=== PATIENT | female | born 1945 | race Caucasian/White ===

== ENCOUNTER 2018-06-04 14:58 | Observation (INO) | payer OTHER, BC ==
[2018-06-04] MEDS ORDERED: CA GLUCO IV ONE (16:30)
[2018-06-04] MEDS ORDERED: NA CHLORIDE 0.9% IV ONE (16:30)
[2018-06-04] MEDS ORDERED: HYDROCODONE/APAP 10/325 TAB PO PRN (21:28)
[2018-06-05] MEDS ORDERED: PANTOPRAZOLE 40MG TABLET PO SCH (06:30)
[2018-06-05] MEDS ORDERED: DULOXETINE 30 MG CAP PO SCH (09:00)
[2018-06-05] MEDS ORDERED: CARVEDILOL 6.25 MG TAB PO SCH (09:00)
[2018-06-05] MEDS ORDERED: HOME MED 1 EA UNK (Potassium Chloride [Klor-Con M10] 10 MEQ) PO SCH (09:00)
[2018-06-05] MEDS ORDERED: HOME MED 1 EA UNK (Omeprazole [Prilosec] 40 MG) PO SCH (09:00)
[2018-06-05] MEDS ORDERED: TRAMADOL HCL 50 MG TAB PO SCH (09:00)
[2018-06-05] MEDS ORDERED: FUROSEMIDE 40 MG TABLET PO SCH (09:00)
[2018-06-05] MEDS ORDERED: POTASSIUM CL SA 10 MEQ TAB PO SCH (09:00)
--- NOTE | 2018-06-05 13:22 | HP ---
Date of Admission: 06/04/2018 Chief Complaint: Severe hypocalcemia. History Of Present Illness: This 72-year-old female was found to have severe hypocalcemia of 6. The patient was having a problem with balance. At this point, it was not clear whether she had some acu te neurological symptoms related to her hypocalcemia. The patient was admitted for observation as ou tpatient services were not available because of the . Past Medical History: Positive for hypothyroidism, osteoarthritis, hyperlipidemia, gastroesophageal reflux disease, congestive heart failure. Past Surgical History: Includes gastric bypass surgery and hysterectomy. Allergies: LIPITOR, IODINE, AND DEMEROL. Review of Systems: No chest pain or syncope. Physical Examination: General: Revealed a 72-year-old female, alert for her age. HEENT: Negative. Neck: Supple. JVD negative. Chest: Clear. Heart: Regular. Abdomen: Soft. Extremities: No edema. Laboratory Data: Calcium 6.0. Assessment: 1.Severe hypocalcemia. 2.Loss of balance. 3.Congestive heart failure. 4.Hyperlipidemia. 5.Status post gastric bypass surgery and hysterectomy. Plan: The patient received IV calcium. Workup included parathyroid hormone assay and vitamin D. Pa rathyroid hormone level was high. Vitamin D level was undetectable. At this point, it was felt that the patient because of her gastric bypass surgery and lack of sun exposure has no effective vitamin D causing severe hypocalcemia. She was given 50,000 units of vitamin D. The patient will be followe d in the office. JEAN/LISANDRO Voice ID: [id number]
[2018-06-11] MEDS ORDERED: DRISDOL (VITAMIN D=ERGOCALCIFEROL) 50000 UNIT CAP PO SCH (09:00)
== END 2018-06-05 09:10 | disposition home or self-care (01) ==
LOC: 2ND 15:15
PROVIDERS: ADMIT Internal Medicine; ATTEND Internal Medicine
DX: E83.51 Hypocalcemia (principal); E03.9 Hypothyroidism, unspecified; R26.9 Unspecified abnormalities of gait and mobility; M19.90 Unspecified osteoarthritis, unspecified site; E78.5 Hyperlipidemia, unspecified; K21.9 Gastro-esophageal reflux disease without esophagitis; I50.9 Heart failure, unspecified; Z98.84 Bariatric surgery status
CPT/HCPCS: 36415; 82306; 82330 ×2; 83735; 83970; J0610; G0378; G0379

== ENCOUNTER 2025-04-12 15:56 | Emergency (ER) | payer OTHER, BC ==
[2025-04-12] MEDS ORDERED: ACETAMINOPHEN 500 MG TAB ONE (16:36)
[2025-04-12] MEDS ORDERED: NA CHLORIDE 0.9% 1,000 ML ONE (16:36)
[2025-04-12 16:55] LABS: Absolute Lymphocytes (CBC) 0.4 K/uL (0.7-4.9); Hematocrit 40.2 % (36.0-45.0); Hemoglobin 13.6 g/dL (12.0-15.0); MCH 28.9 pg (27.0-35.0); MCHC 33.7 g/dL (32.0-36.0); MCV 85.6 fL (80-100); MPV 9.4 fL (7.6-11.3); Nucleated RBC Absolute Count 0.0 (0-0); Nucleated Red Blood Cells % 0.0 % (0-0); RBC Red Blood Cell Count 4.70 M/uL (3.86-4.86); White Blood Count 9.20 thou/uL (4.3-10.9)
[2025-04-12 17:05] LABS: PT Prothrombin Time 13.5 SECONDS (10-13.0); PTT, Activated Partial Thromb 31.2 SECONDS (27.2-37.4); Protime INR 1.2
[2025-04-12 17:15] LABS: Albumin 3.0 g/dL (3.4-5.0); Albumin/Globulin Ratio 0.7 (1.1-1.8); Alkaline Phosphatase 122 U/L (45-117); Anion Gap 8.1 mEq/L (5.0-15.0); BUN Blood Urea Nitrogen 13 mg/dL (7-18); Globulin 4.4 g/dL (2.3-3.5); Glucose Level 153 mg/dL (74-106); Potassium 3.1 mEq/L (3.5-5.1)
[2025-04-12 17:16] LABS: ALT/SGPT < 14 U/L (13-56); AST/SGOT < 10 U/L (15-37)
[2025-04-12 18:12] LABS: Urine Culture Reflex Order REFLEXED
[2025-04-12 18:22] LABS: Urine Microscopic Reflex YN ORDER UMIC
[2025-04-12] MEDS ORDERED: POTASSIUM CL SA 10 MEQ TAB PO ONE (18:38)
--- NOTE | 2025-04-12 18:45 | EDPHYS ---
Physician Documentation [facility] Name: Mansoor Bronson Age: 79 yrs Sex: Female : 1945 Arrival Date: 04/12/2025 Time: 15:56 Bed 7 Private MD: ED Physician Vamsi Michele HPI: 04/12 16:18 This 79 yrs old Female presents to ER via Ambulatory with complaints of Fever, Pain kb With Urination, Urinary Frequency. 16:18 Patient is a 79-year-old female who presents for urinary frequency and burning with kb urination that started on Saturday, 4 days ago. Reports temperature up to 103. Also reports vomiting x 1 yesterday.. 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 - Infectious Disease History:: Denies. - Social history:: Smoking status: Patient denies any tobacco usage or history of. ROS: 16:18 Constitutional: As per HPI kb Exam: 16:18 Constitutional: This is a well developed, well nourished patient who is awake, alert, kb and in no acute distress. Head/Face: Normocephalic, atraumatic. ENT: Moist Mucous membranes Cardiovascular: Tachycardic rate Respiratory: Respirations even and unlabored. No increased work of breathing. Talking in full sentences Abdomen/GI: Soft, non-tender. No distention Back: No spinal tenderness. No costovertebral tenderness. Full range of motion. Skin: Warm, dry with normal turgor. Normal color. MS/ Extremity: Pulses equal, no cyanosis. Neurovascular intact. Full, normal range of motion. Neuro: Awake and alert, GCS 15, oriented to person, place, time, and situation. 16:53 ECG was reviewed by the Attending Physician. kb Vital Signs: 16:14 BP 117 / 73; Pulse 122; Resp 16; Temp 100; Pulse Ox 94% on R/A; Weight 85.28 kg; Pain dd2 0/10; 16:55 BP 112 / 60; Pulse 102; Pulse Ox 94% ; ss 17:06 BP 115 / 58; Pulse 93; Resp 15; Pulse Ox 94% ; jl7 19:10 BP 121 / 52; Pulse 80; Resp 15; Temp 98.3; Pulse Ox 98% ; jl7 16:14 Pain Scale: Adult dd2 MDM: 16:11 Medical Screening Exam initiated kb 18:43 Differential diagnosis: UTI, pyelonephritis, kidney stone. Data reviewed: vital signs, kb nurses notes. Consideration of Admission/Observation Escalation of care including admission/observation considered. Admission considered but patient is nontoxic in appearance, tolerating p.o. intake, prefers to go home at this time. States she will return for worsening symptoms.. Test considered but Not performed: CT: CT abdomen pelvis considered but patient has no abdominal or CVA tenderness or pain. Historians other than the Patient: Family Member: Family. Counseling: I had a detailed discussion with the patient and/or guardian regarding the historical points, exam findings, and any diagnostic results supporting the discharge/admit diagnosis, lab results, the need for outpatient follow up, a family practitioner, to return to the emergency department if symptoms worsen or persist or if there are any questions or concerns that arise at home. 04/12 16:15 Order name: Blood Culture Adult (2) 04/12 16:15 Order name: CBC with Diff 04/12 16:15 Order name: CMP; Complete Time: 17:19 04/12 16:15 Order name: Lactate w/ 2H reflex if indic.; Complete Time: 17:19 04/12 16:15 Order name: Protime (+inr); Complete Time: 17:07 04/12 16:15 Order name: Ptt, Activated; Complete Time: 17:07 04/12 16:15 Order name: UA Rfx Onel Cult if indicated; Complete Time: 18:35 04/12 18:18 Order name: Urine Culture [facility] 04/12 19:03 Order name: CBC Smear Scan [facility] 04/12 16:15 Order name: Cardiac monitoring; Complete Time: 16:56 04/12 16:15 Order name: IV Saline Lock - Large Bore; Complete Time: 16:49 04/12 16:15 Order name: Labs collected and sent; Complete Time: 16:49 04/12 16:15 Order name: O2 Per Protocol; Complete Time: 16:56 kb 04/12 16:15 Order name: O2 Sat Monitoring; Complete Time: 16:56 kb 04/12 16:15 Order name: Vital Signs; Complete Time: 16:36 kb EC:53 Rate is 106 beats/min. Rhythm is regular. QRS [place] is Normal. NV interval is normal at kb 142 msec. QRS interval is normal at 90 msec. QT interval is normal at 446 msec. Administered Medications: 16:50 Drug: Acetaminophen PO 1000 mg PO once Route: PO; jl7 18:42 Follow up: Response: No adverse reaction; Pain is decreased ap3 16:58 Drug: NS 0.9% IV 1000 ml IV at 1000 ml once; to be given as a bolus over 60 minutes jl7 Route: IV; Rate: 1000 ml; Site: right antecubital; 18:55 Follow up: Response: No adverse reaction; IV Status: Completed infusion; IV Intake: jl7 1000ml 18:42 Drug: Potassium Chloride PO 40 mEq PO once Route: PO; ap3 18:57 Follow up: Response: Medication administered at discharge. jl7 18:50 Drug: Amoxicillin-Clavulanate PO 875 mg PO once Route: PO; ap3 18:57 Follow up: Response: Medication administered at discharge. jl7 Disposition Summary: 04/12/25 18:44 Discharge Ordered Notes: Location: Home kb Condition: Stable kb Diagnosis - UTI/ Urinary tract infection, site not specified kb Followup: kb - With: Emergency Department - When: As needed - Reason: Worsening of condition Followup: kb - With: Private Physician - When: 2 - 3 days - Reason: Recheck today's complaints, Continuance of care, Re-evaluation by your physician Discharge Instructions: - Discharge Summary Sheet kb - Urinary Tract Infection, Adult, [id number] kb Forms: - Medication Reconciliation Form kb - Antibiotic Education kb - Prescription Opioid Use kb - Patient Portal Instructions kb - Leadership Thank You Letter kb Prescriptions: - Augmentin 875-125 mg Oral Tablet - take 1 tablet ORAL route every 12 hours for 10 days; 20 tablet; Refills: 0, kb Product Selection Permitted - Cephalexin 500 mg Oral Capsule - take 1 capsule ORAL route every 12 hours for 10 days; 20 capsule; Refills: 0, dr5 Product Selection Permitted Signatures: Dispatcher [employer] Laila De La Torre, DENTAL ASSISTANT TEACHER-C DENTAL ASSISTANT TEACHER-Ckb Bentley Armstrong, RN RN jl7 Nia Vazquez, RN RN ap3 CIRA PERLA, RN RN dd2 Corrections: (The following items were deleted from the chart) 16:16 16:16 BLOOD CULTURE*+BA.LAB.BRZ ordered. EDMS EDMS 16:16 16:16 CBC+H.LAB.BRZ ordered. EDMS EDMS 16:16 16:16 COMPREHENSIVE METABOLIC PANEL+C.LAB.BRZ ordered. EDMS EDMS 16:16 16:16 LACTATE+C.LAB.BRZ ordered. EDMS EDMS 16:16 16:16 PROTIME (+INR)+COAG.LAB.BRZ ordered. EDMS EDMS 16:16 16:16 PTT, ACTIVATED+COAG.LAB.BRZ ordered. EDMS EDMS 16:16 16:16 UA Rfx Onel Cult if indicated+U.LAB.BRZ ordered. EDMS EDMS
--- NOTE | 2025-04-12 18:45 | ER ---
Nurse's Notes [facility] Name: Mansoor Bronson Age: 79 yrs Sex: Female : 1945 Arrival Date: 04/12/2025 Time: 15:56 Bed 7 Private MD: Diagnosis: UTI/ Urinary tract infection, site not specified Presentation: 04/12 16:12 Chief complaint: Patient states: URINARY FREQUENCY, BURNING WHEN URINATING AND FEVER dd2 THAT BEGAN SATURDAY. N/V THAT BEGAN LAST NIGHT. 16:12 Method Of Arrival: Ambulatory dd2 16:14 Coronavirus screen: At this time, the client does not indicate any symptoms associated dd2 with coronavirus-19. Ebola Screen: No symptoms or risks identified at this time. Initial Sepsis Screen: Does the patient meet any 2 criteria? HR > 90 bpm. No. Patient's initial sepsis screen is negative. Does the patient have a suspected source of infection? No. Patient's initial sepsis screen is negative. Risk Assessment: Do you want to hurt yourself or someone else? Patient reports no desire to harm self or others. Onset of symptoms was April 10, 2025. 16:14 Acuity: STAR 3 dd2 Triage Assessment: 16:14 General: Appears in no apparent distress. uncomfortable, Behavior is calm, cooperative, dd2 appropriate for age. Pain: Denies pain. : Reports burning with urination, urgency, urinary frequency. 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 - Infectious Disease History:: Denies. - Social history:: Smoking status: Patient denies any tobacco usage or history of. Screenin:55 [facility] ED Fall Risk Assessment (Adult) History of falling in the last 3 months, jl7 including since admission No falls in past 3 months (0 pts) Confusion or Disorientation No (0 pts) Intoxicated or Sedated No (0 pts) Impaired Gait No (0 pts) Mobility Assist Device Used No (0 pt) Altered Elimination No (0 pt) Score/Fall Risk Level 0 - 2 = Low Risk Oriented to surroundings, Maintained a safe environment. Abuse screen: Denies threats or abuse. Denies injuries from another. Nutritional screening: No deficits noted. Tuberculosis screening: No symptoms or risk factors identified. Assessment: 16:55 General: Appears in no apparent distress. uncomfortable, Behavior is calm, cooperative, jl7 appropriate for age. Pain: Denies pain. Neuro: Level of Consciousness is awake, alert, obeys commands, Oriented to person, place, time, situation. Cardiovascular: Patient's skin is warm and dry. Respiratory: Airway is patent Respiratory effort is even, unlabored, Respiratory pattern is regular, symmetrical. : Reports burning with urination. Derm: Skin is pink, warm \T\ dry. 18:00 Reassessment: Patient appears in no apparent distress at this time. Patient and/or jl7 family updated on plan of care and expected duration. Pain level reassessed. Patient is alert, oriented x 3, equal unlabored respirations, skin warm/dry/pink. Patient states feeling better. Patient states symptoms have improved. Vital Signs: 16:14 BP 117 / 73; Pulse 122; Resp 16; Temp 100; Pulse Ox 94% on R/A; Weight 85.28 kg; Pain dd2 0/10; 16:55 BP 112 / 60; Pulse 102; Pulse Ox 94% ; ss 17:06 BP 115 / 58; Pulse 93; Resp 15; Pulse Ox 94% ; jl7 19:10 BP 121 / 52; Pulse 80; Resp 15; Temp 98.3; Pulse Ox 98% ; jl7 16:14 Pain Scale: Adult dd2 ED Course: 16:11 Patient arrived in ED. cj3 16:11 Laila Mueller FNP-C is PHCP. kb 16:11 Vamsi Michele MD is Attending Physician. kb 16:14 Arm band placed on right wrist. dd2 16:20 Triage completed. dd2 16:33 Bentley Armstrong, JUNE is Primary Nurse. jl7 16:45 Initial lab(s) drawn, by me, sent to lab. First set of blood cultures drawn by me. bc6 16:49 Blood Culture Adult (2) Sent. bc6 16:49 CBC with Diff Sent. bc6 16:49 CMP Sent. bc6 16:49 Lactate w/ 2H reflex if indic. Sent. bc6 16:50 Protime (+inr) Sent. bc6 16:50 Ptt, Activated Sent. bc6 16:50 Inserted saline lock: 20 gauge in right wrist, using aseptic technique. Blood bc6 collected. Flushed with 10 mL NS. 16:55 Client placed on continuous cardiac and pulse oximetry monitoring. NIBP monitoring ap3 applied. broadcast operations technician on. Pulse ox on. NIBP on. 16:55 Patient has correct armband on for positive identification. Bed in low position. Call jl7 light in reach. Side rails up X 1. Provided Education on: use of call stuart. 16:55 EKG done, by ED staff, reviewed by Laila BLOOM. jl7 19:11 No provider procedures requiring assistance completed. IV discontinued, intact, jl7 bleeding controlled, No redness/swelling at site. Pressure dressing applied. Administered Medications: 16:50 Drug: Acetaminophen PO 1000 mg PO once Route: PO; jl7 18:42 Follow up: Response: No adverse reaction; Pain is decreased ap3 16:58 Drug: NS 0.9% IV 1000 ml IV at 1000 ml once; to be given as a bolus over 60 minutes jl7 Route: IV; Rate: 1000 ml; Site: right antecubital; 18:55 Follow up: Response: No adverse reaction; IV Status: Completed infusion; IV Intake: jl7 1000ml 18:42 Drug: Potassium Chloride PO 40 mEq PO once Route: PO; ap3 18:57 Follow up: Response: Medication administered at discharge. jl7 18:50 Drug: Amoxicillin-Clavulanate PO 875 mg PO once Route: PO; ap3 18:57 Follow up: Response: Medication administered at discharge. jl7 Medication: 16:55 VIS not applicable for this client. jl7 Intake: 18:55 IV: 1000ml; Total: 1000ml. jl7 Outcome: 18:44 Discharge ordered by . jacklyn 19:11 Discharged to home via wheelchair, with family, jl7 19:11 Condition: stable 19:11 Discharge instructions given to patient, family, Instructed on discharge instructions, follow up and referral plans. medication usage, Demonstrated understanding of instructions, follow-up care, medications, Prescriptions given X 1, 19:12 Patient left the ED. jl7 Addendum: 04/19/2025 11:08 Addendum: Culture Results: Positive urine culture. Positive blood culture. Bacteria is j l7 resistant to, has intermediate sensitivity, or is not tested against prescribed antibiotics. Report given to KIEL for further evaluation and then to canvassing manager for follow up with patient. Phone call Attempt #1 Pt reports symptoms have improved and she is following up with PCP so no further action from ED at this point. Signatures: Laila Mueller, INTEGRATIVE MEDICINE PHYSICIAN-C INTEGRATIVE MEDICINE PHYSICIAN-Ckb Xena Robert, RN RN ss Bentley Armstrong RN RN jl7 Nia Vazquez RN RN ap3 Ariadne Kramer6 CIRA PERLA RN RN dd2 Rosie Fan cj3
[2025-04-12] MEDS ORDERED: AMOX/K CLAV 875 MG TAB ONE (18:48)
[2025-04-12 19:03] LABS: Blood Morphology Comment NOT SEEN (NOT SEEN); White Blood Cell Scan OK (OK)
[2025-04-12 19:49] VITALS: BP 121/52; TEMP 98.3; O2SAT 98
== END 2025-04-12 19:12 | disposition home or self-care (01) ==
LOC: ER 15:56
DX: N39.0 Urinary tract infection, site not specified (principal)
CPT/HCPCS: 96361; 93005; 87040; 87088; 85025; 81001; 87086; 36415; 87205; 85610; 83605; 85730; 87077 ×2; 87186 ×2; 80053; 96360; 99285; J7030